=== PATIENT | female | born 1950 | race Caucasian/White ===

== ENCOUNTER 2016-08-13 04:09 | Emergency (ER) | payer MEDICARE, OTHER ==
[2016-08-13 04:51] LABS: PTT 24.7 SEC (22.9-36.1); Prothrombin Time 13.8 SEC (12.0-14.7)
[2016-08-13] MEDS ORDERED: Dexamethasone 10 MG/ML VIAL ONE (04:52)
[2016-08-13] MEDS ORDERED: Morphine Sulfate 2 MG/ML SYRINGE ONE (04:52)
[2016-08-13 05:03] LABS: CKMB 2.7 ng/mL (0-6.6); Troponin I 0.028 ng/mL (< 0.028)
[2016-08-13 05:09] LABS: ALT (SGPT) 31 U/L (8-55); AST (SGOT) 53 U/L (5-34); Albumin 3.4 g/dL (3.4-4.8); Alkaline Phosphatase 76 U/L (40-150); Anion Gap 18 mmol/L (10-20); BUN (Urea Nitrogen) 17 mg/dL (9.8-20.1); Bilirubin, Total 0.8 mg/dL (0.2-1.2); CK (CPK) 46 U/L (29-168); Calc. Creatinine Clearance 0 mL/min (70-130); Calcium 8.9 mg/dL (7.8-10.44); Carbon Dioxide 31 mmol/L (23-31); Chloride 84 mmol/L (98-107); Estimated GFR-MDRD Greater than 90; Globulin 3.4 g/dL (2.4-3.5); Glucose 116 mg/dL (80-115); Hemoglobin 13.3 g/dL (12.0-16.0); Magnesium 2.3 mg/dL (1.6-2.6); Mean Corpuscular HGB CONC 34.4 g/dL (32.0-36.0); Mean Corpuscular Hemoglobin 32.2 pg (27.0-31.0); Mean Corpuscular Volume 93.5 fl (81.0-99.0); Mean Platelet Volume 6.9 fL (7.4-10.4); Platelet Count 320 thou/uL (130-400); Potassium 4.9 mmol/L (3.5-5.1); Protein, Total 6.8 g/dL (6.0-8.3); RBC Distribution Width 12.5 % (11.5-14.5); Red Blood Cell (RBC) Count 4.13 mill/uL (4.20-5.40); Sodium 128 mmol/L (136-145); White Blood Cell (WBC) Count 31.8 thou/uL (4.8-10.8)
[2016-08-13 05:10] LABS: MDiff Complete? YES; Monocytes 1 % (0-10)
[2016-08-13 05:11] LABS: Band 16 % (5-11); Lymphocytes 8 % (21-51); Metamyelocyte 2 % (0-0); Neutrophil 73 % (42-75)
[2016-08-13] MEDS ORDERED: Sodium Chloride 0.9% 1,000 ML BAG ONE (12:18)
== END 2016-08-13 04:55 | disposition short-term general hospital (02) ==
LOC: MADERS 04:09
DX: J84.10 Pulmonary fibrosis, unspecified (principal); E11.9 Type 2 diabetes mellitus without complications; Z79.84 Long term (current) use of oral hypoglycemic drugs; Z79.4 Long term (current) use of insulin; Z79.899 Other long term (current) drug therapy
CPT/HCPCS: 36415; 80053; 82553; 83735; 83880; 84484; 85025; 85610; 85730; 87040; 94760; J1100; J2270; J7050